=== PATIENT | male | born 1960 | race Caucasian/White ===

== ENCOUNTER 2020-01-27 08:10 | Day surgery (SDC) | payer BC ==
[~2020-01-27] VITALS: Ht 177.8 cm; Wt 75.0 kg
[2020-01-27 08:17] VITALS: BP 149/75
[2020-01-27] MEDS ORDERED: OMEP40CA13 PO (08:21)
[2020-01-27] MEDS ORDERED: fentaNYL/PF 50MCG/1 ML 2ML syringe ONE (08:35)
[2020-01-27] MEDS ORDERED: MIDAZolam 5mg/5ml vial ONE (08:35)
[2020-01-27 08:57] VITALS: BP 112/80
[2020-01-27 09:07] VITALS: BP 110/79
[2020-01-27 09:17] VITALS: BP 110/83
[2020-01-27 09:27] VITALS: BP 106/69
== END 2020-01-27 09:30 | disposition home or self-care (01) ==
LOC: GI LAB 08:10
PROVIDERS: ATTEND Internal Medicine Gastroenterology
DX: Z12.11 Encounter for screening for malignant neoplasm of colon (principal); D12.3 Benign neoplasm of transverse colon; K63.89 Other specified diseases of intestine; K63.5 Polyp of colon
CPT/HCPCS: 45385; 99152; C1773; J2250; J3010; J7040; 99153; A4620